=== PATIENT | female | born 1995 | race Caucasian/White ===

== ENCOUNTER 2018-04-03 22:17 | Emergency (ER) | payer OTHER ==
[~2018-04-03] VITALS: Ht 157.5 cm; Wt 65.8 kg
[2018-04-03 22:42] VITALS: Ht 157.5 cm; Wt 65.8 kg
[2018-04-03 23:34] VITALS: BP 117/55
== END 2018-04-03 23:35 | disposition home or self-care (01) ==
LOC: ED 22:17
DX: J11.1 Influenza due to unidentified influenza virus with other respiratory manifestations (principal)
CPT/HCPCS: Q0092